=== PATIENT | male | born 1975 | race African-American/Black ===

== ENCOUNTER 2018-05-15 23:34 | Emergency (ER) | payer SELFPAY ==
[~2018-05-15] VITALS: Ht 175.3 cm; Wt 119.5 kg
[2018-05-15 23:40] VITALS: BP 153/99
[2018-05-15] MEDS ORDERED: IBUP800T19 PO (23:53)
--- NOTE | 2018-05-15 23:56 | PHYS DOC ---
Adult General Chief Complaint Chief Complaint Toothache HPI HPI For 3 years old female presented emergency department with toothache on the right upper side for dictated is Gorse in the past 24 hours no fever no chills no headache no nausea no vomiting no diarrhea Review of Systems Review of Systems Constitutional: Denies fever or chills [] Eyes: Denies change in visual acuity, redness, or eye pain [] HENT: Denies nasal congestion or sore throat [] Respiratory: Denies cough or shortness of breath [] Cardiovascular: No additional information not addressed in HPI [] GI: Denies abdominal pain, nausea, vomiting, bloody stools or diarrhea [] : Denies dysuria or hematuria [] Musculoskeletal: Denies back pain or joint pain [] Integument: Denies rash or skin lesions [] Neurologic: Denies headache, focal weakness or sensory changes [] Endocrine: Denies polyuria or polydipsia [] All other systems were reviewed and found to be within normal limits, except as documented in this note. Allergies Allergies Allergies Coded Allergies Type Severity Reaction Last Updated Verified No Known Drug Allergies 05/15/18 No Physical Exam Physical Exam Constitutional: Well developed, well nourished, no acute distress, non-toxic appearance. [] HENT: Normocephalic, atraumatic, bilateral external ears normal, oropharynx moist, no oral exudates, nose normal. [] Eyes: PERRLA, EOMI, conjunctiva normal, no discharge. [] Neck: Normal range of motion, no tenderness, supple, no stridor. [] Cardiovascular:Heart rate regular rhythm, no murmur [] Lungs & Thorax: Bilateral breath sounds clear to auscultation [] Abdomen: Bowel sounds normal, soft, no tenderness, no masses, no pulsatile masses. [] Skin: Warm, dry, no erythema, no rash. [] Back: No tenderness, no CVA tenderness. [] Extremities: No tenderness, no cyanosis, no clubbing, ROM intact, no edema. [] Neurologic: Alert and oriented X 3, normal motor function, normal sensory function, no focal deficits noted. [] Psychologic: Affect normal, judgement normal, mood normal. [] EKG EKG [] Radiology/Procedures Radiology/Procedures [] Course & Med Decision Making Course & Med Decision Making Pertinent Labs and Imaging studies reviewed. (See chart for details) [] Final Impression Final Impression [] Problems: (1) Tooth abscess Dragon Disclaimer Dragon Disclaimer This electronic medical record was generated, in whole or in part, using a voice recognition dictation system. DIRK WEI MD May 15, 2018 23:56
[2018-05-15] MEDS ORDERED: HYDR-3165 PO (23:58)
[2018-05-15] MEDS ORDERED: AMOX500C PO (23:58)
[2018-05-16] MEDS ORDERED: MORPHINE SULFATE 10 MG/ML SYRINGE. IM ONE
[2018-05-16] MEDS ORDERED: KETOROLAC 60 MG/2 ML VIAL. IM ONE ×2 (00:01)
[2018-05-16] MEDS ORDERED: MORPHINE SULFATE 10 MG/ML SYRINGE. ONE (00:02)
== END 2018-05-16 00:17 | disposition home or self-care (01) ==
LOC: ER 23:34
DX: K04.7 Periapical abscess without sinus (principal)
CPT/HCPCS: 96372; 99283; J1885; J2270

== ENCOUNTER 2018-08-03 13:56 | Emergency (ER) | payer SELFPAY ==
[~2018-08-03] VITALS: Ht 175.3 cm; Wt 127.9 kg
[2018-08-03 13:56] VITALS: BP 155/96
[~2018-08-03 13:56] MED LIST: AMOX500C PO; HYDR-3165 PO; IBUP800T19 PO
[2018-08-03] MEDS ORDERED: IBUP800T19 PO (14:32)
[2018-08-03] MEDS ORDERED: CYCL-331 PO (14:32)
--- NOTE | 2018-08-03 14:32 | PHYS DOC ---
Past History Past Medical History: Anxiety, Depression Past Surgical History: Other Smoking: Cigarettes Alcohol Use: None Drug Use: None Adult General Chief Complaint Chief Complaint: EARACHE/EAR PAIN [facility] HPI Patient is a 43 year old male who presents with complaining of episodes of pain in his jaw and right ear and neck. Patient complaining of at least one of aching pain in right ear and right jaw and right side of neck and last for a few seconds and happens once a day for the last 6 months. Patient said the pain getting worse with movement of his head. Patient denies headache, nausea and vomiting, focal neuro deficit, fever and chills. Patient was seen was in this emergency room for the same problem and treated for dental abscess. He moved to this area more than 6 months ago and does not have a primary care physician. Review of Systems Review of Systems Constitutional: Denies fever or chills [] Eyes: Denies change in visual acuity, redness, or eye pain [] HENT: Denies nasal congestion or sore throat [] Respiratory: Denies cough or shortness of breath [] Cardiovascular: No additional information not addressed in HPI [] GI: Denies abdominal pain, nausea, vomiting, bloody stools or diarrhea [] : Denies dysuria or hematuria [] Musculoskeletal: Denies back pain or joint pain [] Integument: Denies rash or skin lesions [] Neurologic: Denies headache, focal weakness or sensory changes [] Endocrine: Denies polyuria or polydipsia [] All other systems were reviewed and found to be within normal limits, except as documented in this note. Allergies Allergies Allergies Coded Allergies Type Severity Reaction Last Updated Verified morphine Allergy Intermediate Nausea and Vomiting 08/03/18 Yes Physical Exam Physical Exam Constitutional: Well developed, well nourished, mild acute distress, non-toxic appearance. [] HENT: Normocephalic, atraumatic, bilateral external ears normal, oropharynx moist, no oral exudates, nose normal. [] Eyes: PERRLA, EOMI, conjunctiva normal, no discharge. [] Neck: Normal range of motion, no tenderness, supple, no stridor. [] Cardiovascular:Heart rate regular rhythm, no murmur [] Lungs & Thorax: Bilateral breath sounds clear to auscultation [] Skin: Warm, dry, no erythema, no rash. [] Back: No tenderness, no CVA tenderness. [] Extremities: No tenderness, no cyanosis, no clubbing, ROM intact, no edema. [] Neurologic: Alert and oriented X 3, normal motor function, normal sensory function, no focal deficits noted. [] Psychologic: Affect normal, judgement normal, mood normal. [] Current Patient Data Vital Signs Vital Signs Date Time Temp Pulse Resp B/P (MAP) Pulse Ox O2 Delivery O2 Flow Rate FiO2 08/03/18 13:56 98.4 82 20 97 Room Air EKG EKG [] Radiology/Procedures Radiology/Procedures [] Course & Med Decision Making Course & Med Decision Making discharge: I've spoken with the patient and/or caregivers. I've explained the patient's condition, diagnosis and treatment plan based on information available to me at this time. I've answered the patient's and/or caregivers questions and addressed any concerns. The patient and/or caregivers have a good understanding the patient's diagnosis, condition and treatment plan as can be expected at this point. Vital signs have been stabilized. The patient's condition is stable for discharge from the emergency department. The patient will pursue further outpatient evaluation with her primary care provider or other designated consulting physician as outlined in the discharge instructions. Patient and/or caregivers are agreeable to this plan of care and follow-up instructions have been explained in detail. The patient and/or caregivers have received these instructions in written format and expressed understanding of these discharge instructions. The patient and her caregivers are aware that if any significant change in condition or worsening of symptoms should prompt him to immediately return to this of the closest emergency department. If an emergent department is not readily available I would encourage him to call 911. Jaya Disclaimer Dragon Disclaimer This electronic medical record was generated, in whole or in part, using a voice recognition dictation system. Departure Departure: Impression: Primary Impression: Muscle spasm Additional Impressions: Tobacco abuse Tobacco abuse counseling Morbid obesity Chronic pain Disposition: HOME, SELF-CARE (at 1429) Condition: STABLE Referrals: PCPNITZA (PCP) Patient Instructions: Musculoskeletal Pain Additional Instructions: Drink plenty of liquids Follow-up with your primary care physician in 3-5 days Return to ER if not getting better Apply ice on the affected area Scripts Ibuprofen (IBUPROFEN) 800 Mg Tablet 1 TAB PO TID for pain, #30 TAB Prov: BREEZY MALDONADO MD 08/03/18 Cyclobenzaprine Hcl (CYCLOBENZAPRINE HCL) 10 Mg Tablet 1 TAB PO TID for pain, #30 TAB Prov: BREEZY MALDONADO MD 08/03/18 Problem Qualifiers BREEZY MALDONADO MD Aug 03, 2018 14:32
== END 2018-08-03 14:25 | disposition home or self-care (01) ==
LOC: ER 13:56
DX: M62.838 Other muscle spasm (principal); G89.29 Other chronic pain; R68.84 Jaw pain; H92.02 Otalgia, left ear; M54.2 Cervicalgia; E66.01 Morbid (severe) obesity due to excess calories; F17.210 Nicotine dependence, cigarettes, uncomplicated; Z71.6 Tobacco abuse counseling; Z68.41 Body mass index [BMI] 40.0-44.9, adult; Z88.5 Allergy status to narcotic agent
CPT/HCPCS: 99283

== ENCOUNTER 2018-11-11 05:26 | Emergency (ER) | payer SELFPAY ==
[~2018-11-11] VITALS: Ht 175.3 cm; Wt 119.5 kg
[~2018-11-11 05:26] MED LIST changes: +CYCL-331 PO
--- NOTE | 2018-11-11 05:56 | EKG ---
[address] [address] Test Date: 2018-11-11 Test Time: 05:51:34 Pat Name: BILLY VÁSQUEZ Department: Room: Gender: M Glass Technician/Installer: : 1975 Requested By: DAVID CHIN Order Number: [id number] Reading MD: Jay Sawyer Measurements Intervals Innis Rate: 87 P: 48 SC: 154 QRS: -12 QRSD: 94 T: 31 QT: 360 QTc: 439 Interpretive Statements SINUS RHYTHM LEFTWARD AXIS Electronically Signed On 11-30-2018 12:46:55 CDT by Jay Sawyer
[2018-11-11] MEDS ORDERED: CLIN300C8 PO (06:00)
[2018-11-11] MEDS ORDERED: LIDO15SO2 MM (06:00)
[2018-11-11] MEDS ORDERED: TRAM50TA PO (06:00)
--- NOTE | 2018-11-11 06:01 | PHYS DOC ---
Past History Past Medical History: Anxiety, Depression Past Surgical History: Other Smoking: Cigarettes Alcohol Use: None Drug Use: None Adult General Chief Complaint Chief Complaint: DENTAL PROBLEM HPI HPI Patient is a 43-year-old male who presents with complaint of left jaw pain that started a little over half an hour ago. Patient indicates that after little while the jaw pain started to radiate down into the left side of his neck and then later radiated down into his right shoulder and down his arm. Patient states that this point he became concerned and decided to come in and be checked out. He denies any nausea, vomiting or diaphoresis. He also denies any chest pain or shortness breath. He states the pain is worsened with movement of his jaw. He states that nothing is improving the symptoms.[] Review of Systems Review of Systems Constitutional: Denies fever or chills [] HENT: Positive left jaw pain[] Respiratory: Denies cough or shortness of breath [] Cardiovascular: No additional information not addressed in HPI [] GI: Denies abdominal pain, nausea, vomiting or diarrhea [] Musculoskeletal: Positive neck and left shoulder pain [] Integument: Denies rash or skin lesions [] All other systems were reviewed and found to be within normal limits, except as documented in this note. Allergies Allergies Allergies Coded Allergies Type Severity Reaction Last Updated Verified morphine Allergy Intermediate Nausea and Vomiting 11/11/18 Yes Physical Exam Physical Exam Constitutional: Well developed, well nourished, no acute distress, non-toxic appearance. [] HENT: Normocephalic, atraumatic, bilateral external ears normal, oropharynx moist, no oral exudates, nose normal. [] Eyes: PERRLA, EOMI, conjunctiva normal, no discharge. [] Neck: Normal range of motion, no tenderness, supple [] Cardiovascular:Heart rate regular rhythm, no murmur [] Lungs & Thorax: Bilateral breath sounds clear to auscultation [] Skin: Warm, dry, no erythema, no rash. [] Extremities: No tenderness, no cyanosis, no clubbing, ROM intact, no edema. [] Neurologic: Alert and oriented X 3, no focal deficits noted. [] EKG EKG EKG demonstrates normal sinus rhythm with no ST segment M Whittaker.[] Radiology/Procedures Radiology/Procedures [] Course & Med Decision Making Course & Med Decision Making Pertinent Labs and Imaging studies reviewed. (See chart for details) [] Dragon Disclaimer Dragon Disclaimer This electronic medical record was generated, in whole or in part, using a voice recognition dictation system. Departure Departure: Impression: Primary Impression: Pain due to dental caries Disposition: HOME, SELF-CARE Condition: STABLE Referrals: PCP,NO (PCP) Patient Instructions: Dental Caries, Dental Pain Scripts Lidocaine HCl (Lidocaine HCl Viscous) 15 Ml Solution 1 ML MM Q2HR PRN for tooth pain, #100 ML Prov: DAVID CHIN Jr. DO 11/11/18 Tramadol Hcl (TRAMADOL HCL) 50 Mg Tablet 50 MG PO PRN Q6HRS PRN for PAIN, #10 TAB Prov: DAVID CHIN Jr. DO 11/11/18 Clindamycin Hcl (CLINDAMYCIN HCL) 300 Mg Capsule 1 CAP PO TID for infection, #30 CAP Prov: DAVID CHIN Jr. DO 11/11/18 DAVID CHIN Jr. DO November 11, 2018 06:01
[2018-11-11] MEDS ORDERED: LIDOCAINE 2% VISCOUS 15 ML SOLUTION. ONE (06:12)
[2018-11-11] MEDS ORDERED: CLINDAMYCIN HCL 150 MG CAPSULE ONE (06:13)
[2018-11-11] MEDS ORDERED: traMADol 50 MG TABLET ONE (06:13)
[2018-11-11 06:15] VITALS: BP 155/84
[2018-11-11] MEDS ORDERED: traMADol 50 MG TABLET PO ONE (06:15)
[2018-11-11] MEDS ORDERED: LIDOCAINE 2% VISCOUS 15 ML SOLUTION. SWSW ONE (06:15)
[2018-11-11] MEDS ORDERED: CLINDAMYCIN HCL 150 MG CAPSULE PO ONE (06:15)
== END 2018-11-11 06:20 | disposition home or self-care (01) ==
LOC: ER 05:26
DX: K02.9 Dental caries, unspecified (principal); F41.9 Anxiety disorder, unspecified; F32.9 Major depressive disorder, single episode, unspecified; F17.210 Nicotine dependence, cigarettes, uncomplicated; Z88.5 Allergy status to narcotic agent
CPT/HCPCS: 93005; 99284